=== PATIENT | female | born 1975 | race Caucasian/White ===

== ENCOUNTER 2016-08-19 19:49 | Emergency (ER) | payer OTHER | END 2016-08-19 21:00 | disposition home or self-care (01) | LOC: ER1 19:49 | DX: S99.922A Unspecified injury of left foot, initial encounter (principal); F17.210 Nicotine dependence, cigarettes, uncomplicated; Z88.5 Allergy status to narcotic agent; Z88.1 Allergy status to other antibiotic agents; W22.8XXA Striking against or struck by other objects, initial encounter | CPT/HCPCS: 29515; 73630; 96372; 99283; J1885 ==

== ENCOUNTER 2020-04-29 10:47 | Emergency (ER) | payer OTHER ==
[~2020-04-29 10:47] MED LIST: PEPCID20 MG PO; PHENERGAN 25 MG25 M1 PO; ZOFRAN4 MG PO
== END 2020-04-29 12:00 | disposition left against medical advice (07) ==
LOC: ER1 10:47
DX: R51.9 Headache, unspecified (principal); R11.2 Nausea with vomiting, unspecified; Z53.21 Procedure and treatment not carried out due to patient leaving prior to being seen by health care provider

== ENCOUNTER 2021-01-06 17:50 | Emergency (ER) | payer BC ==
[2021-01-06 19:20] LABS: HEMOGLOBIN 14.5 gm/dl (12.3-15.3); RED BLOOD COUNT 4.52 M/UL (4.00-5.10); WHITE BLOOD COUNT 5.6 K/UL (4.5-11.0)
[2021-01-06 19:46] LABS: BUN/CREATININE RATIO 12 (0-10)
[2021-01-06] MEDS ORDERED: PROTONIX40 MG PO (21:53)
[2021-01-06] MEDS ORDERED: ZOFRAN4 MG PO (21:53)
== END 2021-01-06 23:35 | disposition home or self-care (01) ==
LOC: ER1 17:50
PROVIDERS: Emergency Medicine
DX: R10.9 Unspecified abdominal pain (principal); R11.0 Nausea; J45.909 Unspecified asthma, uncomplicated; F17.210 Nicotine dependence, cigarettes, uncomplicated
CPT/HCPCS: 80053; 81001; 83690; 85025; 96365; 96375; 99284; J2405; J2550; Q9967

== ENCOUNTER 2021-02-07 20:05 | Emergency (ER) | payer BC, MEDICAID ==
[~2021-02-07 20:05] MED LIST changes: +PROTONIX40 MG PO
[2021-02-07 21:12] LABS: RED BLOOD COUNT 4.71 M/UL (4.00-5.10); WHITE BLOOD COUNT 6.9 K/UL (4.5-11.0)
[2021-02-07 21:34] LABS: BUN/CREATININE RATIO 19 (0-10)
[2021-02-08] MEDS ORDERED: BENTYL 20MG TAB20 MG PO (01:52)
[2021-02-08] MEDS ORDERED: FLORASTOR250 MG PO (01:52)
[2021-02-08] MEDS ORDERED: PHENERGAN 25 MG25 M1 PO (01:52)
== END 2021-02-08 02:15 | disposition home or self-care (01) ==
LOC: ER1 20:05
PROVIDERS: Physician Assistant Medical
DX: M54.50 Low back pain, unspecified (principal); R10.9 Unspecified abdominal pain; R11.2 Nausea with vomiting, unspecified; R10.817 Generalized abdominal tenderness; F17.210 Nicotine dependence, cigarettes, uncomplicated; R91.1 Solitary pulmonary nodule; Z20.822 Contact with and (suspected) exposure to COVID-19; Z88.1 Allergy status to other antibiotic agents; Z88.5 Allergy status to narcotic agent; Z90.49 Acquired absence of other specified parts of digestive tract; Z90.710 Acquired absence of both cervix and uterus
CPT/HCPCS: 80053; 81001; 83690; 85025; 96374; 96375; 99284; J2270; J2405; J7030; U0002

== ENCOUNTER 2021-09-06 07:52 | Emergency (ER) | payer BC, OTHER ==
[~2021-09-06 07:52] MED LIST changes: +BENTYL 20MG TAB20 MG PO; +FLORASTOR250 MG PO
== END 2021-09-06 11:09 | disposition home or self-care (01) ==
LOC: ER1 07:52
DX: G43.909 Migraine, unspecified, not intractable, without status migrainosus (principal); F17.210 Nicotine dependence, cigarettes, uncomplicated; Z88.5 Allergy status to narcotic agent; Z90.49 Acquired absence of other specified parts of digestive tract; Z90.710 Acquired absence of both cervix and uterus; Z88.1 Allergy status to other antibiotic agents
CPT/HCPCS: 96374; 96375; 99283; J1200; J1885; J2765

== ENCOUNTER 2021-10-05 22:46 | Emergency (ER) | payer BC ==
[2021-10-05 23:17] LABS: HEMOGLOBIN 12.7 gm/dl (12.3-15.3); RED BLOOD COUNT 4.14 M/UL (4.00-5.10); WHITE BLOOD COUNT 5.6 K/UL (4.5-11.0)
[2021-10-05 23:49] LABS: BUN/CREATININE RATIO 5 (0-10)
== END 2021-10-06 01:40 | disposition home or self-care (01) ==
LOC: ER1 22:46
PROVIDERS: Family Medicine
DX: R51.9 Headache, unspecified (principal); R53.81 Other malaise; E87.6 Hypokalemia; F17.200 Nicotine dependence, unspecified, uncomplicated; Z88.1 Allergy status to other antibiotic agents; Z88.5 Allergy status to narcotic agent
CPT/HCPCS: 80053; 81001; 82550; 82553; 84439; 84443; 84484; 84703; 85025; 93005; 99284

== ENCOUNTER 2021-12-11 00:02 | Emergency (ER) | payer OTHER | END 2021-12-11 03:40 | disposition home or self-care (01) | LOC: ER1 00:02 | DX: R51.9 Headache, unspecified (principal); R42 Dizziness and giddiness; F17.210 Nicotine dependence, cigarettes, uncomplicated; Z90.49 Acquired absence of other specified parts of digestive tract; Z88.1 Allergy status to other antibiotic agents; Z88.5 Allergy status to narcotic agent | CPT/HCPCS: 70450; 99284 ==

== ENCOUNTER 2021-12-12 23:14 | Emergency (ER) | payer OTHER ==
[2021-12-13 01:30] LABS: HEMOGLOBIN 13.4 gm/dl (12.3-15.3); RED BLOOD COUNT 4.35 M/UL (4.00-5.10); WHITE BLOOD COUNT 7.4 K/UL (4.5-11.0)
[2021-12-13 01:58] LABS: BUN/CREATININE RATIO 17 (0-10)
[2021-12-13] MEDS ORDERED: OMEPRAZOLE40 MG PO (03:20)
[2021-12-13] MEDS ORDERED: ZOFRAN ODT 4 MG4 MG PO (03:20)
== END 2021-12-13 03:30 | disposition home or self-care (01) ==
LOC: ER1 23:14
PROVIDERS: Family Medicine
DX: R10.9 Unspecified abdominal pain (principal); R51.9 Headache, unspecified; R11.0 Nausea; Z88.1 Allergy status to other antibiotic agents; F17.200 Nicotine dependence, unspecified, uncomplicated; Z20.822 Contact with and (suspected) exposure to COVID-19
CPT/HCPCS: 80053; 81001; 82550; 82553; 83690; 83735; 84439; 84443; 84484; 84703; 85025; 93005; 96374; 96375; 99285; J1885; J2405; U0002